=== PATIENT | female | born 1960 | race Caucasian/White ===

== ENCOUNTER → 2017-06-02 | Outpatient (CLI) | payer BC | LOC: COL.CARD 13:13 | DX: R00.2 Palpitations (principal) ==

== ENCOUNTER → 2017-09-20 | Outpatient (CLI) | payer BC | LOC: MC.RAD 14:48 | DX: Z12.31 Encounter for screening mammogram for malignant neoplasm of breast (principal) ==

== ENCOUNTER → 2018-12-03 | Outpatient (CLI) | payer BC | LOC: MC.RAD 09:45 | DX: Z12.31 Encounter for screening mammogram for malignant neoplasm of breast (principal) ==

== ENCOUNTER → 2019-09-19 | Outpatient (CLI) | payer BC | LOC: COL.RAD 13:14 | DX: M77.8 Other enthesopathies, not elsewhere classified (principal) | CPT/HCPCS: J3301; Q9967 ==

== ENCOUNTER → 2020-03-12 | Outpatient (CLI) | payer BC | LOC: MC.RAD 18:43 | DX: Z12.31 Encounter for screening mammogram for malignant neoplasm of breast (principal) ==

== ENCOUNTER → 2021-07-23 | Outpatient (CLI) | payer BC ==
[2021-07-23 13:32] LABS: BASO % 0.3 % (0.0-2.0); EOS # 0.1 K/mm3 (0.0-0.7); EOS % 0.9 % (0-4.0); GRAN # 6.7 K/mm3 (1.4-6.5); GRAN % 74.7 % (42.2-75.2); HEMATOCRIT 40.4 % (37.0-47.0); HEMOGLOBIN 13.3 g/dl (12.5-16.0); LYMPH # 1.6 K/mm3 (1.2-3.4); LYMPH % 17.5 % (20.0-51.0); MEAN CELL VOLUME 85 fl (80.0-100.0); MEAN CORPUSCULAR HEMOGLOBIN 28 pg (27.0-31.0); MEAN CORPUSCULAR HGB CONC 33 g/dl (33.0-37.0); MEAN PLATELET VOLUME 10.2 fl (7.4-10.4); MONO # 0.6 K/mm3 (0.1-0.6); MONO % 6.2 % (1.7-9.3); PLATELET COUNT 341 K/mm3 (130-400); RED BLOOD COUNT 4.74 M/mm3 (4.10-5.30); REDCELL DISTRIBUTION WIDTH-CV 13.1 % (11.5-14.5)
[2021-07-23 13:46] LABS: ALANINE AMINOTRANSFERASE 24 U/L (0-55); ALBUMIN 4.4 gm/dL (3.5-5.0); ALKALINE PHOSPHATASE 71 U/L (0-750); ANION GAP 9 mmol/L (7-16); AST,SGOT 18 U/L (5-34); BILIRUBIN,TOTAL 0.4 mg/dL (0.2-1.2); BLOOD UREA NITROGEN 9 mg/dL (10-20); CALCIUM 10.8 mg/dL (8.4-10.2); CARBON DIOXIDE 24 mmol/L (22-29); CHLORIDE 100 mmol/L (98-107); CREATININE, serum 0.96 mg/dL (0.57-1.11); GLUCOSE 92 mg/dL (70-99); POTASSIUM 4.1 mmol/L (3.5-4.5); SODIUM 133 mmol/L (136-145); TOTAL PROTEIN 7.2 gm/dL (6.2-8.1)
[2021-07-23 13:53] LABS: TROPONIN-I < 0.010 ng/mL (0.00-0.033)
== END ==
LOC: COL.LAB 12:48
PROVIDERS: Family Medicine
DX: R07.9 Chest pain, unspecified (principal)

== ENCOUNTER → 2021-08-05 | Outpatient (CLI) | payer BC | LOC: COL.RAD 10:12 | DX: E83.52 Hypercalcemia (principal) | CPT/HCPCS: A9500 ==

== ENCOUNTER → 2021-08-12 | Outpatient (CLI) | payer BC | LOC: MC.RAD 15:09 | DX: Z12.31 Encounter for screening mammogram for malignant neoplasm of breast (principal) ==

== ENCOUNTER → 2021-09-14 | Outpatient (CLI) | payer BC ==
[2021-09-15 16:26] LABS: CALCIUM 10.4 mg/dL (8.4-10.2); CREATININE, serum 0.95 mg/dL (0.57-1.11); POTASSIUM 4.1 mmol/L (3.5-4.5)
== END ==
LOC: COL.LAB 14:21
PROVIDERS: Internal Medicine
DX: E83.52 Hypercalcemia (principal)

== ENCOUNTER → 2022-01-14 | Outpatient (CLI) | payer BC ==
[2022-01-14 16:31] LABS: ALBUMIN 4.3 gm/dL (3.5-5.0); BILIRUBIN,TOTAL 0.4 mg/dL (0.2-1.2); CALCIUM 10.1 mg/dL (8.4-10.2); CREATININE, serum 0.86 mg/dL (0.57-1.11); MAGNESIUM 2.1 mg/dL (1.6-2.6); PHOSPHOROUS 3.5 mg/dL (2.3-4.7); POTASSIUM 4.3 mmol/L (3.5-4.5); TOTAL PROTEIN 6.8 gm/dL (6.2-8.1)
== END ==
LOC: COL.LAB 15:43
DX: E83.52 Hypercalcemia (principal); E83.59 Other disorders of calcium metabolism

== ENCOUNTER → 2022-01-17 | Outpatient (CLI) | payer BC ==
[2022-01-17 18:43] LABS: URINE TOTAL VOLUME 4500 mL
== END ==
LOC: ZCOL.LAB 16:37
DX: E83.52 Hypercalcemia (principal); E83.59 Other disorders of calcium metabolism

== ENCOUNTER → 2023-09-11 | Outpatient (CLI) | payer BC | LOC: MC.RAD 09:51 | DX: Z12.31 Encounter for screening mammogram for malignant neoplasm of breast (principal) ==